=== PATIENT | male | born 1960 | race Caucasian/White ===

== ENCOUNTER 2019-05-07 14:27 | Emergency (ER) | payer MEDICARE ==
[~2019-05-07] VITALS: Ht 182.9 cm; Wt 108.0 kg
[~2019-05-07 14:27] MED LIST: AMOX875T PO; HYDR-3164 PO
[2019-05-07 15:00] VITALS: BP 129/63
[2019-05-07] MEDS ORDERED: IPRATRPIUM/ALBUTEROL 0.5/2.5MG 3 ML NEBU. NEB ONE (15:45)
--- NOTE | 2019-05-07 15:48 | PHYS DOC ---
Past Medical History Past Medical History: High Cholesterol Past Surgical History: Appendectomy Additional Past Surgical Histo: KNEE SX, ELBOW, SHOULDER, BILATERAL HANDS. Alcohol Use: None Drug Use: Marijuana Adult General Chief Complaint Chief Complaint: COUGH HPI HPI Patient is a 58 year old male] who presents with [chills, fatigue, cough. Patient reports he has had a productive cough on and off for the past 5 days. Reports he has tried some Mucinex, different cough medications, has even tried his spouse's inhaler twice, reports that coughing continues. Does report he is concerned he may have black mold in the house which is causing his symptoms. States he has not checked his temperature, but has felt chills and hot every now and then.] Review of Systems Review of Systems Constitutional: Denies fever reports chills [] Eyes: Denies change in visual acuity, redness, or eye pain [] HENT: Denies nasal congestion or sore throat [] Respiratory: Reports cough, denies shortness of breath [] Cardiovascular: No additional information not addressed in HPI [] GI: Denies abdominal pain, nausea, vomiting, bloody stools or diarrhea [] : Denies dysuria or hematuria [] Musculoskeletal: Denies back pain or joint pain [] Integument: Denies rash or skin lesions [] Neurologic: Denies headache, focal weakness or sensory changes [] Endocrine: Denies polyuria or polydipsia [] All other systems were reviewed and found to be within normal limits, except as documented in this note. Current Medications Current Medications Current Medications Medications (Trade) Dose Ordered Sig/Antionette Start Time Stop Time Status Last Admin Dose Admin Albuterol/ Ipratropium (Duoneb) 3 ml 1X ONCE 05/07/19 15:45 05/07/19 15:48 DC 05/07/19 16:02 3 ML Allergies Allergies Allergies Coded Allergies Type Severity Reaction Last Updated Verified No Known Drug Allergies 03/14/16 No Physical Exam Physical Exam Constitutional: Well developed, well nourished, no acute distress, non-toxic appearance. [] HENT: Normocephalic, atraumatic, bilateral external ears normal, oropharynx moist, no oral exudates, nose normal. [] Eyes: PERRLA, EOMI, conjunctiva normal, no discharge. [] Neck: Normal range of motion, no tenderness, supple, no stridor. [] Cardiovascular:Heart rate regular rhythm, no murmur [] Lungs & Thorax: Bilateral breath sounds clear to auscultation, minimally decreased bilaterally, occasional productive cough noted during exam [] Abdomen: Bowel sounds normal, soft, no tenderness, no masses, no pulsatile masses. [] Skin: Warm, dry, no erythema, no rash. [] Back: No tenderness, no CVA tenderness. [] Extremities: No tenderness, no cyanosis, no clubbing, ROM intact, no edema. [] Neurologic: Alert and oriented X 3, normal motor function, normal sensory function, no focal deficits noted. [] Psychologic: Affect normal, judgement normal, mood normal. [] Current Patient Data Vital Signs Vital Signs Date Time Temp Pulse Resp B/P (MAP) Pulse Ox O2 Delivery O2 Flow Rate FiO2 05/07/19 16:03 93 Room Air 05/07/19 15:00 98.9 96 17 129/63 (85) 98.9 EKG EKG [] Radiology/Procedures Radiology/Procedures The cardiomediastinal silhouette grossly appears unremarkable. Mild prominent bilateral perihilar interstitial lung markings with faint patchy opacities identified in the left lingula likely pneumonia,follow-up to resolution. Course & Med Decision Making Course & Med Decision Making Pertinent Labs and Imaging studies reviewed. (See chart for details) [Patient reports he is feeling much better, following his DuoNeb treatment. States it causes his be decreased. Discussed imaging results with patient, with signs of pneumonia. Lung sounds improved following nebulizer without wheezing noted. Will recommend use of inhaler as needed, will Rx antibiotics. Continue with Mucinex as he has been taking. Follow-up with primary care as needed. Patient can he is concerned about mold in his house, discussed patient that this needs to be evaluated and managed at home and his illness over the last 5 days is most likely not related to any long-standing issues where he has been living for quite some time. Dragon Disclaimer Dragon Disclaimer This electronic medical record was generated, in whole or in part, using a voice recognition dictation system. Departure Departure Impression: Primary Impression: Pneumonia Additional Impression: Bronchospasm, acute Disposition: 01 HOME, SELF-CARE Condition: GOOD Referrals: UNKNOWN PCP NAME (PCP) Patient Instructions: Inhaler, Using Your, [id number], Pneumonia, Adult, [id number] Additional Instructions: As we discussed, use inhaler when you start to feel shortness of breath or continue to cough. Continue taking Mucinex you had been taking to help break up the mucus in your chest. Scripts Levofloxacin (LEVAQUIN) 750 Mg Tablet 1 TAB PO DAILY, #5 TAB Prov: EZEQUIEL ISLAS APRN 05/07/19 Albuterol Sulfate (Proventil Hfa) 6.7 Gm Hfa.aer.ad 1 PUFF INH PRN Q6HRS PRN for COUGH, #1 INHALER Prov: EZEQUIEL ISLAS APRN 05/07/19 Problem Qualifiers Primary Impression: Pneumonia Pneumonia type: due to unspecified organism Laterality: left Lung location: unspecified part of lung Qualified Codes: J18.9 - Pneumonia, unspecified organism EZEQUIEL ISLAS APRN May 07, 2019 15:48
[2019-05-07] MEDS ORDERED: PROVENTIL HFA6.7 G2 INH (16:27)
--- NOTE | 2019-05-07 16:29 | RAD ---
Chest, PA and Lateral: Technique: PA and lateral views of the chest were obtained. History: Cough, fever. Comparison: None. Findings/ impression: The cardiomediastinal silhouette grossly appears unremarkable. Mild prominent bilateral perihilar interstitial lung markings with faint patchy opacities identified in the left lingula likely pneumonia,follow-up to resolution. Electronically signed by: Roddy Tristan MD (05/07/2019 4:27 PM) [facility]
[2019-05-07] MEDS ORDERED: LEVO750T31 PO (16:34)
== END 2019-05-07 17:14 | disposition home or self-care (01) ==
LOC: ER 14:27
DX: J18.9 Pneumonia, unspecified organism (principal); J98.01 Acute bronchospasm; E78.00 Pure hypercholesterolemia, unspecified
CPT/HCPCS: 71046; 94640; 99284; J7620